=== PATIENT | female | born 1990 | race Caucasian/White ===

== ENCOUNTER 2020-02-11 14:34 | Emergency (ER) | payer BC, OTHER ==
[~2020-02-11] VITALS: Ht 149.9 cm; Wt 74.3 kg
--- NOTE | 2020-02-11 15:28 | PHYS DOC ---
General Adult EDM: Chief Complaint: MULTIPLE COMPLAINTS HPI: HPI: 29-year-old female presents with right calf pain and swelling. She has pain in the ankle that radiates up to her knee. She feels like her right calf is more firm than the left. She thinks it larger than it normally is. Patient does work full-time on her feet. She denies any injuries, vomiting rides in a car or plane. She is not on control. She is not a smoker. No history of DVT. Patient was recently seen today urgent care for bacterial vaginosis and did not bring up the ankle pain. Review of Systems: Review of Systems: Constitutional: Denies fever or chills Eyes: Denies change in visual acuity HENT: Denies nasal congestion or sore throat Respiratory: Denies cough or shortness of breath Cardiovascular: Denies chest pain or edema GI: Denies abdominal pain, nausea, vomiting, bloody stools or diarrhea : Denies dysuria Musculoskeletal: Right ankle pain, calf pain Integument: Denies rash Neurologic: Denies headache, focal weakness or sensory changes Endocrine: Denies polyuria or polydipsia Lymphatic: Denies swollen glands Psychiatric: Denies depression or anxiety Heart Score: Risk Factors: Risk Factors: DM, Current or recent (<one month) smoker, HTN, HLP, family history of CAD, obesity. Risk Scores: Score 0 - 3: 2.5% MACE over next 6 weeks - Discharge Home Score 4 - 6: 20.3% MACE over next 6 weeks - Admit for Clinical Observation Score 7 - 10: 72.7% MACE over next 6 weeks - Early Invasive Strategies Allergies: Allergies: Allergies Coded Allergies Type Severity Reaction Last Updated Verified No Known Drug Allergies 07/20/15 No Physical Exam: PE: Constitutional: Well developed, well nourished, no acute distress, non-toxic appearance. [] HENT: Normocephalic, atraumatic, bilateral external ears normal, oropharynx moist, no oral exudates, nose normal. [] Eyes: PERRLA, EOMI, conjunctiva normal, no discharge. [] Neck: Normal range of motion, no tenderness, supple, no stridor. [] Cardiovascular:Heart rate regular rhythm, no murmur [] Lungs & Thorax: Bilateral breath sounds clear to auscultation [] Abdomen: Bowel sounds normal, soft, no tenderness, no masses, no pulsatile masses. [] Skin: Warm, dry, no erythema, no rash. [] Back: No tenderness, no CVA tenderness. [] Extremities: Right calf not obviously larger than left. But no posterior calf tenderness. [place] ankle rules negative. [] Neurologic: Alert and oriented X 3, normal motor function, normal sensory function, no focal deficits noted. [] Psychologic: Affect normal, judgement normal, mood normal. [] EKG: EKG: [] Radiology/Procedures: Radiology/Procedures: [] Impressions: EXAM: Right lower extremity venous Doppler sonogram. HISTORY: Pain and swelling. TECHNIQUE: Chris scale and color Doppler sonographic evaluation of the right lower extremity veins with spectral waveform analysis was performed. FINDINGS: There is normal color flow, normal compressibility and there are normal spectral waveforms in the common femoral, superficial femoral, popliteal, posterior tibial and greater saphenous veins. There is no suspicious finding within the site of reported pain along the posterior lateral calf. IMPRESSION: No Doppler evidence of lower extremity deep venous thrombosis. Electronically signed by: Chary Price MD (02/11/2020 5:05 PM) [facility] DICTATED AND SIGNED BY: CHARY PRICE MD DATE: 02/11/208 CC: FLETCHER DELATORRE DO; TAL BECKER MD ~ Course & Med Decision Making: Course & Med Decision Making Pertinent Labs and Imaging studies reviewed. (See chart for details) Ultrasound shows no evidence of DVT. Not sure why her ankle is hurting. May be she sprained it and does not remember. I have advised conservative care such as ibuprofen, rest, and ice. She is stable for discharge at this time. [] Dragon Disclaimer: Dragon Disclaimer: This electronic medical record was generated, in whole or in part, using a voice recognition dictation system. Departure Departure: Impression: Primary Impression: Acute right ankle pain Disposition: 01 HOME/RESIDENCE PRIOR TO ADM Condition: STABLE Referrals: TAL BECKER MD (PCP) Patient Instructions: Ankle Pain Justification of Admission: Justification of Admission: Justification of Admission Dx: N/A FLETCHER DELATORRE DO Feb 11, 2020 15:28
[2020-02-11] MEDS ORDERED: KETOROLAC 30 MG/ML VIAL. IVP ONE (16:15)
--- NOTE | 2020-02-11 17:08 | RAD ---
EXAM: Right lower extremity venous Doppler sonogram. HISTORY: Pain and swelling. TECHNIQUE: Chris scale and color Doppler sonographic evaluation of the right lower extremity veins with spectral waveform analysis was performed. FINDINGS: There is normal color flow, normal compressibility and there are normal spectral waveforms in the common femoral, superficial femoral, popliteal, posterior tibial and greater saphenous veins. There is no suspicious finding within the site of reported pain along the posterior lateral calf. IMPRESSION: No Doppler evidence of lower extremity deep venous thrombosis. Electronically signed by: Chary Castro MD (02/11/2020 5:05 PM) [facility]
[2020-02-11 17:35] VITALS: BP 107/67
[2020-02-11] MEDS ORDERED: HYDR-3165 PO (17:43)
== END 2020-02-11 17:47 | disposition home or self-care (01) ==
LOC: ER 14:34
DX: M25.571 Pain in right ankle and joints of right foot (principal); M79.661 Pain in right lower leg; R22.41 Localized swelling, mass and lump, right lower limb
CPT/HCPCS: 93971; 99284-25

== ENCOUNTER 2020-05-21 15:47 | Emergency (ER) | payer BC ==
[~2020-05-21] VITALS: Ht 149.9 cm; Wt 74.3 kg
[~2020-05-21 15:47] MED LIST: HYDR-3165 PO
--- NOTE | 2020-05-21 16:44 | PHYS DOC ---
Past History Past Medical History: No Pertinent History (WALESKA SUN APRN) Past Surgical History: No Surgical History (WALESKA SUN APRN) Alcohol Use: None (WALESKA SUN APRN) Adult General Chief Complaint Chief Complaint: FOOT INJURY PAIN [facility] HPI Patient is a 29-year-old female presents emergency department reporting that approximately 1 hour prior to arrival she was playing with her young child rolling around on the floor when she felt her right great toe pop. Patient reports that it immediately became swollen and she cannot stand on it without severe pain reporting a 10/10 pain on a 1-10 pain scale. Patient states she did not take anything for the pain prior to arrival. Patient states her last menstrual cycle was 2 days ago however she is not sure if she is or not as she does not use control. Patient denies any allergies to medications and takes no medications at home. Patient states she had umbilical hernia repair surgery 2016 notes her only surgery she is ever had. Patient denies any other illnesses or health concerns. (WALESKA SUN APRN) Review of Systems Review of Systems Constitutional: Denies fever or chills [] Eyes: Denies change in visual acuity, redness, or eye pain [] HENT: Denies nasal congestion or sore throat [] Respiratory: Denies cough or shortness of breath [] Cardiovascular: No additional information not addressed in HPI [] GI: Denies abdominal pain, nausea, vomiting, bloody stools or diarrhea [] : Denies dysuria or hematuria [] Musculoskeletal: Denies back pain, complains of pain to the right great toe. Integument: Denies rash or skin lesions [] Neurologic: Denies headache, focal weakness or sensory changes [] Endocrine: Denies polyuria or polydipsia [] All other systems were reviewed and found to be within normal limits, except as documented in this note. (WALESKA SUN APRN) Family History Family History Denies family history significant for this event. (WALESKA SUN APRN) Current Medications Current Medications Denies prescription medications at home. (WALESKA SUN APRN) Allergies Allergies Allergies Coded Allergies Type Severity Reaction Last Updated Verified No Known Drug Allergies 07/20/15 No (WALESKA SUN APRN) Physical Exam Physical Exam Constitutional: Well developed, well nourished, no acute distress, non-toxic appearance. [] HENT: Normocephalic, atraumatic, bilateral external ears normal, oropharynx moist, no oral exudates, nose normal. [] Eyes: PERRLA, EOMI, conjunctiva normal, no discharge. [] Neck: Normal range of motion, no tenderness, supple, no stridor. [] Cardiovascular:Heart rate regular rhythm, no murmur [] Lungs & Thorax: Bilateral breath sounds clear to auscultation [] Abdomen: Bowel sounds normal, soft, no tenderness, no masses, no pulsatile masses. [] Skin: Warm, dry, no erythema, no rash. [] Back: No tenderness, no CVA tenderness. [] Extremities: No tenderness, no cyanosis, no clubbing, ROM intact, no edema. Tenderness with palpation to the right great toe. Full AROM, PROM That Elicits Pain. Distal cap refill less than 2 seconds. No bony crepitus, no deformity noted. Neurologic: Alert and oriented X 3, normal motor function, normal sensory function, no focal deficits noted. [] Psychologic: Affect normal, judgement normal, mood normal. [] (WALESKA SUN APRN) Current Patient Data Vital Signs Vital Signs Date Time Temp Pulse Resp B/P (MAP) Pulse Ox O2 Delivery O2 Flow Rate FiO2 05/21/20 16:10 97.8 65 16 139/76 (97) 98 Room Air Lab Results Laboratory Tests Test 05/21/20 16:24 POC Urine HCG, Qualitative hcg negative (Negative) (WALESKA SUN APRN) EKG EKG [] (WALESKA SUN APRN) Radiology/Procedures Radiology/Procedures REASON: GREAT TOE INJURY PROCEDURE: FOOT RIGHT 3V Exam: Right foot 3 views INDICATION: Great toe injury TECHNIQUE: Frontal, lateral and oblique views of the right foot Comparisons: None FINDINGS: Bone mineralization is normal. No acute or healed fractures. Soft tissue swelling at the first digit. Joint spaces are well-maintained. IMPRESSION: Soft tissue swelling at the first digit without underlying osseous abnormality identified. Electronically signed by: Kymberly Black MD (05/21/2020 5:05 PM) [facility] DICTATED AND SIGNED BY: KYMBERLY BLACK MD DATE: 05/21/20 1704 CC: WALESKA SUN APRN; [facility]; TAL BECKER MD ~MTH0 0 (WALESKA SUN APRN) Heart Score Risk Factors: Risk Factors: DM, Current or recent (<one month) smoker, HTN, HLP, family history of CAD, obesity. Risk Scores: Risk Factors: DM, Current or recent (<one month) smoker, HTN, HLP, family history of CAD, obesity. (WALESKA SUN APRN) Course & Med Decision Making Course & Med Decision Making Pertinent Labs and Imaging studies reviewed. (See chart for details) [id number] female comes emergency department after feeling her right great toe pop while playing with her young child on the ground. Patient states that she is not sure if she is or not prior to ordering x-ray imaging a urine was of pain for . The patient was not , her urine was not infected. Patient was given 1 Curtis p.o., and 60 mg Toradol IM. This brought her pain from a 10/10 pain down to a 5/10 pain on a 1-10 pain scale. X- ray imaging read negative for acute fracture by house radiologist interpretation. Discussed with patient findings and diagnosis of right great toe sprain. Will give work excuse for 3 days, will cassidy tape the affected toe, use postop shoe for comfort. Follow-up with her doctor soon. Patient gave verbal understanding of home care instructions, prescription instructions for ibuprofen, ice and elevate instructions, strict return to emergency department instructions, patient had no further questions or concerns, patient discharged home without incident. (WALESKA SUN APRN) Dragon Disclaimer Dragon Disclaimer This electronic medical record was generated, in whole or in part, using a voice recognition dictation system. (WALESKA SUN APRN) Departure Departure: Impression: Primary Impression: Sprain of right great toe Disposition: 01 DC HOME SELF CARE/HOMELESS Condition: IMPROVED Referrals: TAL BECKER MD (PCP) Additional Instructions: You have sprained your right great toe, use cassidy tape and postop shoe for comfort, will write you a work excuse for the next 3 days, take prescribed medications as directed, return to the emergency department for worsening symptoms, see your doctor soon if you do not feel better within the next week or so. EMERGENCY DEPARTMENT GENERAL DISCHARGE INSTRUCTIONS Thank you for coming to [facility] (ED) today and trusting us with you care. We trust that you had a positivie experience in our Emergency Department. If you wish to speak to the department management, you may call the director at [phone]. YOUR FOLLOW UP INSTRUCTIONS ARE FOLLOWS: 1. Do you have a private Doctor? If you do not have a private doctor, please ask for a resource list of physicians or clinics that may be able to assist you with follow up care. 2. The Emergency Physician has interpreted your x-rays. The X-Ray specialist will also review them. If there is a change in the findings, you will be notified in 48 hours when at all possible. 3. A lab test or culture has been done, your results will be reviewed and you will be notified if you need a change in treatment. ADDITIONAL INSTRUCTIONS AND INFORMATION: 1. Your care today has been supervised by a physician who is specially trained in emergency care. Many problems require more than one evaluation for a complete diagnosis and treatment. We recommend that you schedule your follow up appointment as recomme nded to ensure complete treatment of you illness or injury. If you are unable to obtain follow up care and continue to have a problem, or if your condition worsens, we recommend that you return to the ED. 2. We are not able to safely determine your condition over the phone nor are we able to give sound medical advice over the phone. For these safety reasons, if you call for medical advice we will ask you to come to the ED for further evaluation. 3. If you have any questions regarding these discharge instructions please call the ED at [phone]. SAFETY INFORMATION: In the interest of safety, wellness, and injury prevention; we encourage you to wear your sealbelt, if you smoke; quite smoking, and we encourage family to use a protective helmet for bicycling and other sporting events that present an increased risk for head injury. IF YOUR SYMPTOMS WORSEN OR NEW SYMPTOMS DEVELOP, OR YOU HAVE CONCERNS ABOUT YOUR CONDITION; OR IF YOUR CONDITION WORSENS WHILE YOU ARE WAITING FOR YOUR FOLLOW UP APPOINTMENT; EITHER CONTACT YOUR PRIMARY CARE DOCTOR, THE PHYSICIAN WHOSE NAME AND NUMBER YOU WERE GIVEN, OR RETURN TO THE ED IMMEDIATELY. Scripts Ibuprofen (IBUPROFEN) 600 Mg Tablet 600 MG PO TID PRN PRN for TOE PAIN, #20 TAB 0 Refills Prov: WALESKA SUN APRN 05/21/20 Attending Co-Sign Attending Co-Sign The patient was seen and interviewed as well as examined at the bedside. The chart was reviewed. The case was discussed. Agree with the plan of care. (ARTIS FLANAGAN MD) Attending Co-Sign I discussed case with AUT[employer]OBI[employer] DES[employer]ER. I agree to note, plan of care and dispo as written (NELLY RAPHAEL DO) Problem Qualifiers Primary Impression: Sprain of right great toe Encounter type: initial encounter Qualified Codes: S93.501A - Unspecified sprain of right great toe, initial encounter WALESKA SUN APRN May 21, 2020 16:44 ARTIS FLANAGAN MD May 22, 2020 12:40 NELLY RAPHAEL DO May 22, 2020 12:59
[2020-05-21] MEDS ORDERED: HYDROcodone/APAP 10/325 1 TAB TABLET PO ONE (16:45)
[2020-05-21] MEDS ORDERED: KETOROLAC 60 MG/2 ML VIAL. IM ONE (16:45)
[2020-05-21 17:00] LABS: BACTERIA,URINE 0 /HPF (0-FEW); BILIRUBIN,URINE NEG (NEG); CLARITY,URINE CLEAR; COLOR,URINE YELLOW; GLUCOSE,URINE NEG (NEG); NITRITE,URINE NEG (NEG); RBC,URINE RARE /HPF (0-2); SQUAMOUS EPITHELIAL CELL,UR MANY /LPF; UROBILINOGEN,URINE 0.2 mg/dL (0.2 mg/dL); WBC,URINE 0 /HPF (0-4)
--- NOTE | 2020-05-21 17:08 | RAD ---
Exam: Right foot 3 views INDICATION: Great toe injury TECHNIQUE: Frontal, lateral and oblique views of the right foot Comparisons: None FINDINGS: Bone mineralization is normal. No acute or healed fractures. Soft tissue swelling at the first digit. Joint spaces are well-maintained. IMPRESSION: Soft tissue swelling at the first digit without underlying osseous abnormality identified. Electronically signed by: Kymberly Dominguez MD (05/21/2020 5:05 PM) [facility]
[2020-05-21] MEDS ORDERED: IBUP600T16 PO (17:52)
[2020-05-21 18:11] VITALS: BP 143/68
== END 2020-05-21 18:10 | disposition home or self-care (01) ==
LOC: ER 15:47
DX: S93.501A Unspecified sprain of right great toe, initial encounter (principal); R60.0 Localized edema; W18.39XA Other fall on same level, initial encounter; Y93.89 Activity, other specified; Y92.89 Other specified places as the place of occurrence of the external cause; Y99.8 Other external cause status
CPT/HCPCS: 73630; 81001; 81025; 96372; 99284; J1885

== ENCOUNTER 2020-11-22 07:42 | Emergency (ER) | payer BC, OTHER ==
[~2020-11-22] VITALS: Ht 149.9 cm; Wt 74.3 kg
[~2020-11-22 07:42] MED LIST changes: +IBUP600T16 PO
[2020-11-22 07:50] VITALS: BP 108/73
--- NOTE | 2020-11-22 08:10 | PHYS DOC ---
Past History Past Medical History: No Pertinent History Past Surgical History: No Surgical History Alcohol Use: None Adult General Chief Complaint Chief Complaint: ANKLE PROBLEM [facility] HPI Patient is a 30-year-old female presenting for left ankle injury. Onset was approximately 5 hours prior to arrival while at work. States she was walking to leave work when she tripped and suffered an inversion type injury to her left ankle. States she was able to ambulate but admits great pain with weightbearing ever since. She took 650 mg Tylenol for pain with mild relief in symptoms. Reports soft tissue swelling to left lateral portion of ankle. Presenting because the more she thought about it, the more she was worried about something being broken. Reports hearing a pop when rolling said ankle. No change in the motor, sensory or neurologic function Review of Systems Review of Systems Fourteen body systems of review of systems have been reviewed. See HPI for pertinent positives and negative responses, other hunt all other systems are negative, non-pertinent or non-contributory Allergies Allergies Allergies Coded Allergies Type Severity Reaction Last Updated Verified No Known Drug Allergies 07/20/15 No Physical Exam Physical Exam Constitutional: Well developed, well nourished, no acute distress, non-toxic appearance. HENT: Normocephalic, atraumatic, bilateral external ears normal, oropharynx moist, no oral exudates, nose normal. Eyes: PERRLA, EOMI, conjunctiva normal, no discharge. Neck: Normal range of motion, no tenderness, supple, no stridor. Cardiovascular: Heart rate regular per monitor Lungs & Thorax: No respiratory distress or accessory muscle use, bilateral chest rise Abdomen: Abdomen soft, non-tender, bowel sounds present in all quadrants, no guarding or rebound, nonacute abdomen. Skin: Warm, dry, no erythema, no rash. Back: No tenderness, no CVA tenderness. Extremities: No cyanosis, no clubbing, ROM intact, tenderness over left lateral malleolus without any other concerning findings of left hip, and knee, ankle and foot examinations. Neurologic: Alert and oriented X 3, lower extremity compartment soft, neurovascularly intact, normal motor & sensory function, no focal deficits noted. Psychologic: Affect normal, judgement normal, mood normal. Current Patient Data Vital Signs Vital Signs Date Time Temp Pulse Resp B/P (MAP) Pulse Ox O2 Delivery O2 Flow Rate FiO2 11/22/20 07:50 97.7 86 14 108/73 (85) 98 Vital Signs Date Time Temp Pulse Resp B/P (MAP) Pulse Ox O2 Delivery O2 Flow Rate FiO2 11/22/20 07:50 97.7 86 14 108/73 (85) 98 EKG EKG [] Radiology/Procedures Radiology/Procedures Three-view right ankle study Clinical indications: Rolled right ankle. Right ankle injury and pain. FINDINGS: No acute fracture or dislocation or lytic process is seen. The mortise ankle joint is intact. IMPRESSION: No acute fracture. Electronically signed by: Surya Short MD (11/22/2020 8:19 AM) [id number] Heart Score C/O Chest Pain: No Risk Factors: Risk Factors: DM, Current or recent (<one month) smoker, HTN, HLP, family history of CAD, obesity. Risk Scores: Risk Factors: DM, Current or recent (<one month) smoker, HTN, HLP, family history of CAD, obesity. Course & Med Decision Making Course & Med Decision Making Discussed with the patient all findings and diagnostic testing. I discussed most likely diagnosis of musculoskeletal pain likely from ankle sprain/strain suffered during her inversion injury. Discussed etiology that is likely self- limiting and would respond to supportive care practices. Nonetheless, I stressed need for close outpatient follow-up to review today's ER visit. Strict return precautions were also discussed at length with good understanding by patient. Patient voiced understanding and agreement with the plan. Patient knows to come back for repeat evaluation if concerning signs or symptoms present prior to outpatient follow-up. Hemodynamically stable and well-appearing at time of disposition. Dragon Disclaimer Dragon Disclaimer This electronic medical record was generated, in whole or in part, using a voice recognition dictation system. Departure Departure: Impression: Primary Impression: Sprain of right ankle Disposition: HOME / SELF CARE / HOMELESS Condition: STABLE Referrals: TAL BECKER MD (PCP) Patient Instructions: Ankle Exercises (for Rehabilitation), RICE - Routine Care for Injuries Additional Instructions: It is likely that you have experienced a sprain/strain to an associated ligament/tendon within the joint that is causing you pain. The best treatment for this injury is continued range of motion to prevent a frozen joint. A Rest, Ice, Compression, Elevation (RICE) strategy may also be helpful in the acute phase. Please use Tylenol and/or ibuprofen for pain control. Please follow up with your primary doctor. Please return to the ED if new or worrisome symptoms arise. NELLY RAPHAEL 3, 2021 08:10
--- NOTE | 2020-11-22 08:21 | RAD ---
Three-view right ankle study Clinical indications: Rolled right ankle. Right ankle injury and pain. FINDINGS: No acute fracture or dislocation or lytic process is seen. The mortise ankle joint is intac t. IMPRESSION: No acute fracture. Electronically signed by: Surya Short MD (11/22/2020 8:19 AM) [id number]
== END 2020-11-22 08:35 | disposition home or self-care (01) ==
LOC: ER 07:42
DX: S93.401A Sprain of unspecified ligament of right ankle, initial encounter (principal); W01.0XXA Fall on same level from slipping, tripping and stumbling without subsequent striking against object, initial encounter; Y93.01 Activity, walking, marching and hiking; Y92.89 Other specified places as the place of occurrence of the external cause; Y99.8 Other external cause status
CPT/HCPCS: 73610; 99283-25